=== PATIENT | female | born 1975 | race Caucasian/White ===

== ENCOUNTER 2017-08-28 19:20 | Emergency (ER) | payer SELFPAY | END 2017-08-28 20:43 | disposition home or self-care (01) | LOC: ER 19:20 | DX: M79.602 Pain in left arm (principal); F15.10 Other stimulant abuse, uncomplicated; Z88.1 Allergy status to other antibiotic agents; Z88.0 Allergy status to penicillin; Z88.8 Allergy status to other drugs, medicaments and biological substances; Z90.49 Acquired absence of other specified parts of digestive tract | CPT/HCPCS: 73080; 73110; 99284 ==

== ENCOUNTER 2018-10-18 18:33 | Emergency (ER) | payer SELFPAY ==
[~2018-10-18] VITALS: Ht 170.2 cm; Wt 54.4 kg
[~2018-10-18 18:33] MED LIST: CYCL10TA2 PO; TRAM50TA PO
[2018-10-18] MEDS ORDERED: fentaNYL PF VIAL 100 MCG/2 ML VIAL ONE (19:12)
[2018-10-18] MEDS ORDERED: fentaNYL PF VIAL 100 MCG/2 ML VIAL IV ONE (19:15)
[2018-10-18 19:17] LABS: BASO % 1 % (0-3); EOS # 0.1 x10^3/uL (0.0-0.7); EOS % 1 % (0-3); HEMATOCRIT 40.8 % (36.0-47.0); HEMOGLOBIN 14.3 g/dL (12.0-15.5); LYMPH # 2.4 x10^3/uL (1.0-4.8); LYMPH % 28 % (24-48); MEAN CORPUSCULAR HEMOGLOBIN 31 pg (25-35); MEAN CORPUSCULAR HGB CONC 35 g/dL (31-37); MEAN CORPUSCULAR VOLUME 89 fL (79-100); MONO # 0.6 x10^3/uL (0.0-1.1); MONO % 7 % (0-9); NEUT # 5.4 x10^3uL (1.8-7.7); NEUT % 63 % (31-73); PLATELET COUNT 313 x10^3/uL (140-400); RED CELL DISTRIBUTION WIDTH 12.5 % (11.5-14.5); WHITE BLOOD COUNT 8.5 x10^3/uL (4.0-11.0)
[2018-10-18 19:27] LABS: CALCIUM 9.6 mg/dL (8.5-10.1); CREATININE 0.7 mg/dL (0.6-1.0); GFR 91.3
[2018-10-18 19:33] LABS: ALBUMIN 4.3 g/dL (3.4-5.0); ALBUMIN/GLOBULIN RATIO 1.2 (1.0-1.7); TOTAL BILIRUBIN 0.3 mg/dL (0.2-1.0); TOTAL PROTEIN 7.8 g/dL (6.4-8.2)
[2018-10-18 19:40] LABS: BILIRUBIN,URINE NEGATIVE (NEG); CLARITY,URINE CLEAR; COLOR,URINE YELLOW; NITRITE,URINE NEGATIVE (NEG); PH,URINE 7.5; PROTEIN,URINE NEGATIVE (NEG-TRACE)
[2018-10-18 19:45] LABS: AMORPHOUS SEDIMENT,UR PRESENT /HPF; BACTERIA,URINE 0 /HPF (0-FEW); SQUAMOUS EPITHELIAL CELL,UR MOD /LPF
[2018-10-18] MEDS ORDERED: KETOROLAC 15 MG/ML VIAL. IV ONE (19:45)
[2018-10-18 19:51] LABS: AMPHETAMINE/METHAMPHETAMINE POS (NEG); BARBITURATES NEG (NEG); BENZODIAZEPINES NEG (NEG); CANNABINOIDS NEG (NEG); COCAINE NEG (NEG); METHADONE NEG (NEG); OPIATES NEG (NEG); PHENCYCLIDINE NEG (NEG)
--- NOTE | 2018-10-18 20:15 | PHYS DOC ---
Past Medical History Past Medical History: Cancer, Migraines Past Surgical History: Appendectomy, Other Additional Past Surgical Histo: KNEE SURGERY, OVARIAN CYST REMOVAL Alcohol Use: Occasionally Drug Use: Methadone Adult General Chief Complaint Chief Complaint: ABDOMINAL PAIN HPI HPI Patient is a 43 year old female who presents with chief complaint of right lower abdominal pain she has been feeling for the last couple of days but got much worse about an hour ago. She is a prior history of ovarian cysts. Pain is sharp severe radiates to the back no dysuria has not tried anything for relief Review of Systems Review of Systems Constitutional: Denies fever or chills [] Eyes: Denies change in visual acuity, redness, or eye pain [] HENT: Denies nasal congestion or sore throat [] Respiratory: Denies cough or shortness of breath [] All other systems were reviewed and found to be within normal limits, except as documented in this note. Current Medications Current Medications Current Medications Medications (Trade) Dose Ordered Sig/Nj Start Time Stop Time Status Last Admin Dose Admin Fentanyl Citrate (Fentanyl 2ml Vial) 100 mcg STK-MED ONCE 10/18/18 19:12 10/18/18 19:13 DC Ketorolac Tromethamine (Toradol 15mg Vial) 15 mg 1X ONCE 10/18/18 19:45 10/18/18 19:46 DC 10/18/18 19:51 15 MG Allergies Allergies Allergies Coded Allergies Type Severity Reaction Last Updated Verified Penicillins Allergy Unknown 08/28/17 Yes amoxicillin Allergy Unknown 08/28/17 Yes topiramate Allergy Unknown 08/28/17 Yes Physical Exam Physical Exam Constitutional: Well developed, moderate to severe distress HENT: Normocephalic, atraumatic, bilateral external ears normal, oropharynx moist, no oral exudates, nose normal. [] Eyes: PERRLA, EOMI, conjunctiva normal, no discharge. [] Neck: Normal range of motion, no tenderness, supple, no stridor. [] Pulmonary: Normal respiratory effort no increased work of breathing no obvious chest wall trauma Abdomen: Bowel sounds normal, soft, right lower quadrant tenderness, no masses, no pulsatile masses. [] Skin: Warm, dry, no erythema, no rash. [] Back: No tenderness, no CVA tenderness. [] Extremities: No tenderness, no cyanosis, no clubbing, ROM intact, no edema. [] Neurologic: Alert and oriented X 3, normal motor function, normal sensory fu nction, no focal deficits noted. [] Psychologic: Affect normal, judgement normal, mood normal. [] Current Patient Data Vital Signs Vital Signs Date Time Temp Pulse Resp B/P (MAP) Pulse Ox O2 Delivery O2 Flow Rate FiO2 10/18/18 18:41 97.8 76 22 125/61 (82) 96 Room Air 97.8 Lab Values Laboratory Tests Test 10/18/18 19:06 10/18/18 19:20 10/18/18 19:30 10/18/18 19:36 White Blood Count 8.5 x10^3/uL (4.0-11.0) Red Blood Count 4.60 x10^6/uL (3.50-5.40) Hemoglobin 14.3 g/dL (12.0-15.5) Hematocrit 40.8 % (36.0-47.0) Mean Corpuscular Volume 89 fL (79-100) Mean Corpuscular Hemoglobin 31 pg (25-35) Mean Corpuscular Hemoglobin Concent 35 g/dL (31-37) Red Cell Distribution Width 12.5 % (11.5-14.5) Platelet Count 313 x10^3/uL (140-400) Neutrophils (%) (Auto) 63 % (31-73) Lymphocytes (%) (Auto) 28 % (24-48) Monocytes (%) (Auto) 7 % (0-9) Eosinophils (%) (Auto) 1 % (0-3) Basophils (%) (Auto) 1 % (0-3) Neutrophils # (Auto) 5.4 x10^3uL (1.8-7.7) Lymphocytes # (Auto) 2.4 x10^3/uL (1.0-4.8) Monocytes # (Auto) 0.6 x10^3/uL (0.0-1.1) Eosinophils # (Auto) 0.1 x10^3/uL (0.0-0.7) Basophils # (Auto) 0.0 x10^3/uL (0.0-0.2) Sodium Level 140 mmol/L (136-145) Potassium Level 4.0 mmol/L (3.5-5.1) Chloride Level 103 mmol/L (98-107) Carbon Dioxide Level 26 mmol/L (21-32) Anion Gap 11 (6-14) Blood Urea Nitrogen 16 mg/dL (7-20) Creatinine 0.7 mg/dL (0.6-1.0) Estimated GFR (Cockcroft-Gault) 91.3 BUN/Creatinine Ratio 23 (6-20) H Glucose Level 98 mg/dL (70-99) Calcium Level 9.6 mg/dL (8.5-10.1) Total Bilirubin 0.3 mg/dL (0.2-1.0) Aspartate Amino Transferase (AST) 12 U/L (15-37) L Alanine Aminotransferase (ALT) 21 U/L (14-59) Alkaline Phosphatase 69 U/L (46-116) Total Protein 7.8 g/dL (6.4-8.2) Albumin 4.3 g/dL (3.4-5.0) Albumin/Globulin Ratio 1.2 (1.0-1.7) Urine Collection Type U cath Urine Color Yellow Urine Clarity Clear Urine pH 7.5 Urine Specific [place] 1.020 Urine Protein Negative mg/dL (NEG-TRACE) Urine Glucose (UA) Negative mg/dL (NEG) Urine Ketones (Stick) Negative mg/dL (NEG) Urine Blood Negative (NEG) Urine Nitrite Negative (NEG) Urine Bilirubin Negative (NEG) Urine Urobilinogen Dipstick 1.0 mg/dL (0.2 mg/dL) Urine Leukocyte Esterase Small (NEG) Urine RBC 1-2 /HPF (0-2) Urine WBC 1-4 /HPF (0-4) Urine Squamous Epithelial Cells Mod /LPF Urine Amorphous Sediment Present /HPF Urine Bacteria 0 /HPF (0-FEW) Urine Mucus Slight /LPF Urine Opiates Screen Neg (NEG) Urine Methadone Screen Neg (NEG) Urine Barbiturates Neg (NEG) Urine Phencyclidine Screen Neg (NEG) Urine Amphetamine/Methamphetamine Pos (NEG) Urine Benzodiazepines Screen Neg (NEG) Urine Cocaine Screen Neg (NEG) Urine Cannabinoids Screen Neg (NEG) Urine Ethyl Alcohol Neg (NEG) POC Urine HCG, Qualitative Hcg negative (Negative) Laboratory Tests 10/18/18 19:06 Laboratory Tests 10/18/18 19:06 EKG EKG [] Radiology/Procedures Radiology/Procedures [] Impressions: Findings: The uterus is anteverted and measures 8.7 x 4.9 x 4.4 cm. The endometrial stripe measures 9.4 mm. There is a solid 1.8 x 1.4 x 1.0 cm lesion in the cervix probably a cervical fibroid The right ovary measures 2.6 x 1.8 x 1.8 cm. There is a probable hemorrhagic cyst measuring 0.9 x 0.7 x 0.4 cm. The left ovary measures 4.6 x 3.7 x 2.9 cm. There is a large septated cyst measuring 2.9 x 3.5 x 2.0 cm in the left ovary. Symmetric vascularity seen in both ovaries. Impression: Probable cervical fibroid. Septated 2.9 x 3.5 x 2.0 cm cyst in the left ovary physiological. Short-term interval follow-up is 6 weeks may be obtained to ensure stability. Electronically signed by: Tamar Otto MD (10/18/2018 8:57 PM) [facility] DICTATED and SIGNED BY: TAMAR OTTO MD DATE: 10/18/182056 Course & Med Decision Making Course & Med Decision Making Pertinent Labs and Imaging studies reviewed. (See chart for details) []I saw the patient 25 minutes into the ER course. Ultrasound showed good bilateral blood flow patient's pain was controlled in the emergency room with the above medication. She is status post appendectomy. I recommended follow-up ultrasound in 6 weeks as per radiologist's recommendation. Dragon Disclaimer Dragon Disclaimer This electronic medical record was generated, in whole or in part, using a voice recognition dictation system. Departure Departure Impression: Primary Impression: Ovarian cyst Disposition: HOME, SELF-CARE Condition: STABLE Referrals: NO PCP (PCP) Scripts Oxycodone/Apap 5-325 (PERCOCET 5-325 MG TABLET ) 1 Each Tablet 1-2 EACH PO PRN TID PRN for PAIN, #15 TAB pain Prov: JEREMY FISHER MD 10/18/18 JEREMY FISHER MD Oct 18, 2018 20:15
--- NOTE | 2018-10-18 21:00 | RAD ---
Exam performed: Transvaginal Pelvic Ultrasound. Indication: Severe right lower quadrant pain, evaluation of torsion Date of Service: 10/18/2018. No previous exams available for comparison Technique: Transvaginal Findings: The uterus is anteverted and measures 8.7 x 4.9 x 4.4 cm. The endometrial stripe measures 9.4 mm. There is a solid 1.8 x 1.4 x 1.0 cm lesion in the cervix probably a cervical fibroid The right ovary measures 2.6 x 1.8 x 1.8 cm. There is a probable hemorrhagic cyst measuring 0.9 x 0.7 x 0.4 cm. The left ovary measures 4.6 x 3.7 x 2.9 cm. There is a large septated cyst measuring 2.9 x 3.5 x 2.0 cm in the left ovary. Symmetric vascularity seen in both ovaries. Impression: Probable cervical fibroid. Septated 2.9 x 3.5 x 2.0 cm cyst in the left ovary physiological. Short-term interval follow-up is 6 weeks may be obtained to ensure stability. Electronically signed by: Tamar Otto MD (10/18/2018 8:57 PM) [facility]
[2018-10-18] MEDS ORDERED: OXYC1TAB15 PO (21:11)
[2018-10-18 21:21] VITALS: BP 112/68
== END 2018-10-18 21:22 | disposition home or self-care (01) ==
LOC: ER 18:33
DX: N83.202 Unspecified ovarian cyst, left side (principal); G43.909 Migraine, unspecified, not intractable, without status migrainosus; Z90.89 Acquired absence of other organs; Z88.0 Allergy status to penicillin; Z88.1 Allergy status to other antibiotic agents; Z88.8 Allergy status to other drugs, medicaments and biological substances
CPT/HCPCS: 36415; 76830; 76856; 80053; 80307; 81001; 81025; 85025; 87086; 96374; 96375; 99285; J1885; J3010

== ENCOUNTER 2019-10-25 08:58 | Emergency (ER) | payer SELFPAY ==
[~2019-10-25] VITALS: Ht 170.2 cm; Wt 63.6 kg
[~2019-10-25 08:58] MED LIST changes: +OXYC1TAB15 PO
[2019-10-25 09:51] LABS: CALCIUM 8.6 mg/dL (8.5-10.1); CREATININE 0.7 mg/dL (0.6-1.0); GFR 90.9; POTASSIUM 3.5 mmol/L (3.5-5.1)
[2019-10-25 10:15] LABS: BILIRUBIN,URINE NEGATIVE (NEG); CLARITY,URINE CLEAR; COLOR,URINE YELLOW; NITRITE,URINE POSITIVE (NEG); PH,URINE 8.5 (<5.0-8.0); PROTEIN,URINE NEGATIVE (NEG-TRACE)
[2019-10-25 10:17] LABS: BASO % 1 % (0-3); EOS % 1 % (0-3); HEMATOCRIT 38.4 % (36.0-47.0); HEMOGLOBIN 13.3 g/dL (12.0-15.5); LYMPH # 0.8 x10^3/uL (1.0-4.8); LYMPH % 39 % (24-48); MEAN CORPUSCULAR HEMOGLOBIN 32 pg (25-35); MEAN CORPUSCULAR HGB CONC 35 g/dL (31-37); MEAN CORPUSCULAR VOLUME 91 fL (79-100); MONO % 0 % (0-9); NEUT # 1.3 x10^3/uL (1.8-7.7); NEUT % 59 % (31-73); PLATELET COUNT 293 x10^3/uL (140-400); RED CELL DISTRIBUTION WIDTH 12.5 % (11.5-14.5); WHITE BLOOD COUNT 2.1 x10^3/uL (4.0-11.0)
[2019-10-25 10:23] LABS: WBC,URINE 20-40 /HPF (0-4)
[2019-10-25 10:24] LABS: BACTERIA,URINE MANY /HPF (0-FEW); RBC,URINE OCC /HPF (0-2); SQUAMOUS EPITHELIAL CELL,UR FEW /LPF
[2019-10-25 10:25] LABS: HYALINE CASTS, URINE OCCASIONAL /HPF
[2019-10-25] MEDS ORDERED: CONTRAST GIVEN. MC PRN (10:30)
[2019-10-25] MEDS ORDERED: IOHEXOL 240 MG/ML 50ML VIAL. PO ONE (10:30)
[2019-10-25] MEDS ORDERED: ONDANSETRON PF 4 MG/2 ML VIAL. IVP ONE (11:45)
--- NOTE | 2019-10-25 13:16 | RAD ---
Exam: CT abdomen/pelvis without intravenous contrast Indication: Abdominal pain on left with radiation into pelvis Comparison: None Technique: Helical CT imaging performed of the abdomen and pelvis after without intravenous contrast. Sagittal and coronal reformats were obtained. One or more of the following individualized dose reduction techniques were utilized for this examination: 1. Automated exposure control 2. Adjustment of the mA and/or kV according to patient size 3. Use of iterative reconstruction technique. Findings: Lower chest: Normal. Liver: Normal. Gallbladder/Biliary Tree: Normal. Pancreas: Normal. Spleen: Normal. Adrenal Glands: Normal. Kidneys/Ureters/Bladder: Kidneys are normal in size. No hydronephrosis or nephrolithiasis. Ureters are normal. No definite urolithiasis. A 4 mm calcification in the pelvis near the right UVJ is likely a phlebolith rather than in the ureter. The bladder is normal. Reproductive Organs: Normal. Stomach, small bowel, and colon: Normal. Vasculature: Abdominal aorta is normal in caliber. Lymph Nodes: No lymphadenopathy Peritoneum and retroperitoneum: No free fluid or free air. Bones: No acute osseous abnormality. IMPRESSION: Normal noncontrast CT of the abdomen and pelvis. No hydronephrosis or urolithiasis. Electronically signed by: Mayra Trujillo MD (10/25/2019 1:13 PM) [id number]
[2019-10-25 14:20] VITALS: BP 108/65
[2019-10-25] MEDS ORDERED: CEPH-264 PO (14:20)
[2019-10-25] MEDS ORDERED: METR500T PO (14:20)
--- NOTE | 2019-10-25 14:30 | PHYS DOC ---
Past Medical History Past Medical History: Cancer, Migraines Past Surgical History: Appendectomy, Other Additional Past Surgical Histo: KNEE SURGERY, OVARIAN CYST REMOVAL Smoking Status: Current Every Day Smoker Alcohol Use: Occasionally Drug Use: Methadone General Adult EDM: Chief Complaint: BACK PAIN - NO INJURY HPI: HPI: Patient is a 44 year old female who presents with left-sided flank pain. Patient initially stated that she had left flank pain that radiated into her pelvis. She then stated she had right flank pain but then switch back to left flank pain. She states that she has had some nausea denies vomiting. She states the pain got significantly worse today but has been ongoing for several months. She is also been having vaginal discharge for several months. She denies any chance of being . She denies any fevers. Review of Systems: Review of Systems: General: Denies fever, chills, sweats, fatigue Eyes: Denies drainage, blurred vision HENT: Denies rhinorrhea, sore throat Respiratory: Denies cough, shortness of breath, wheezing Cardiac: Denies edema, palpitations, chest pain GI: Reports abdominal pain, N/V, vaginal discharge MSK: Denies back pain, neck pain Skin: Denies rash, jaundice Neuro: Denies headache, dizziness Psychiatric: Denies SI/HI Heart Score: Risk Factors: Risk Factors: DM, Current or recent (<one month) smoker, HTN, HLP, family history of CAD, obesity. Risk Scores: Score 0 - 3: 2.5% MACE over next 6 weeks - Discharge Home Score 4 - 6: 20.3% MACE over next 6 weeks - Admit for Clinical Observation Score 7 - 10: 72.7% MACE over next 6 weeks - Early Invasive Strategies Current Medications: Current Medications Medications (Trade) Dose Ordered Sig/Nj Start Time Stop Time Status Last Admin Dose Admin Info (CONTRAST GIVEN -- Rx MONITORING) 1 each PRN DAILY PRN 10/25/19 10:30 10/27/19 10:29 Iohexol (Omnipaque 240 Mg/ml) 30 ml 1X ONCE 10/25/19 10:30 10/25/19 10:31 DC Ondansetron HCl (Zofran) 4 mg 1X ONCE 10/25/19 11:45 10/25/19 11:46 DC 10/25/19 11:45 4 MG Allergies: Allergies: Allergies Coded Allergies Type Severity Reaction Last Updated Verified Penicillins Allergy Unknown 08/28/17 Yes amoxicillin Allergy Unknown 08/28/17 Yes topiramate Allergy Unknown 08/28/17 Yes Physical Exam: PE: Constitutional: Well developed, well nourished, Cooperative, NAD, non-toxic appearing HEENT: Normocephalic, atraumatic, oropharynx moist, EOMI, PERRL, no drainage from eyes, normal conjunctiva Neck: Supple, normal range of motion, no stridor Cardiovascular: RRR, 2+ radial pulses bilaterally, no edema Respiratory: CTA bilaterally, no respiratory distress, no wheezing/crackles Abdomen: Soft, nontender, nondistended, no masses Skin: Warm, dry, intact Extremities: No obvious deformities Neurologic: Alert and Oriented x3, motor and sensory function grossly normal, no focal deficits Psychologic: Normal affect, normal judgment, normal mood. No SI/HI Current Patient Data: Labs: Laboratory Tests Test 10/25/19 09:18 10/25/19 09:30 10/25/19 09:35 Urine Collection Type Unknown Urine Color Yellow Urine Clarity Clear Urine pH 8.5 (<5.0-8.0) Urine Specific [place] 1.020 (1.000-1.030) Urine Protein Negative mg/dL (NEG-TRACE) Urine Glucose (UA) Negative mg/dL (NEG) Urine Ketones (Stick) Negative mg/dL (NEG) Urine Blood Negative (NEG) Urine Nitrite Positive (NEG) Urine Bilirubin Negative (NEG) Urine Urobilinogen Dipstick 1.0 mg/dL (0.2 mg/dL) Urine Leukocyte Esterase Small (NEG) Urine RBC Occ /HPF (0-2) Urine WBC 20-40 /HPF (0-4) Urine Squamous Epithelial Cells Few /LPF Urine Bacteria Many /HPF (0-FEW) Urine Hyaline Casts Occasional /HPF White Blood Count 2.1 x10^3/uL (4.0-11.0) L Red Blood Count 4.20 x10^6/uL (3.50-5.40) Hemoglobin 13.3 g/dL (12.0-15.5) Hematocrit 38.4 % (36.0-47.0) Mean Corpuscular Volume 91 fL (79-100) Mean Corpuscular Hemoglobin 32 pg (25-35) Mean Corpuscular Hemoglobin Concent 35 g/dL (31-37) Red Cell Distribution Width 12.5 % (11.5-14.5) Platelet Count 293 x10^3/uL (140-400) Neutrophils (%) (Auto) 59 % (31-73) Lymphocytes (%) (Auto) 39 % (24-48) Monocytes (%) (Auto) 0 % (0-9) Eosinophils (%) (Auto) 1 % (0-3) Basophils (%) (Auto) 1 % (0-3) Neutrophils # (Auto) 1.3 x10^3/uL (1.8-7.7) L Lymphocytes # (Auto) 0.8 x10^3/uL (1.0-4.8) L Monocytes # (Auto) 0.0 x10^3/uL (0.0-1.1) Eosinophils # (Auto) 0.0 x10^3/uL (0.0-0.7) Basophils # (Auto) 0.0 x10^3/uL (0.0-0.2) Sodium Level 142 mmol/L (136-145) Potassium Level 3.5 mmol/L (3.5-5.1) Chloride Level 105 mmol/L (98-107) Carbon Dioxide Level 22 mmol/L (21-32) Anion Gap 15 (6-14) H Blood Urea Nitrogen 14 mg/dL (7-20) Creatinine 0.7 mg/dL (0.6-1.0) Estimated GFR (Cockcroft-Gault) 90.9 Glucose Level 89 mg/dL (70-99) Calcium Level 8.6 mg/dL (8.5-10.1) POC Urine HCG, Qualitative Hcg negative (Negative) Laboratory Tests 10/25/19 09:30 Laboratory Tests 10/25/19 09:30 Microbiology 10/25/19 Wet Prep - Final, Complete Vital Signs: Vital Signs Date Time Temp Pulse Resp B/P (MAP) Pulse Ox O2 Delivery O2 Flow Rate FiO2 10/25/19 11:00 100 23 117/56 (76) 99 Room Air 10/25/19 09:00 97.7 97.7 EKG: EKG: [] Radiology/Procedures: Radiology/Procedures: [] Course & Med Decision Making: Course & Med Decision Making Pertinent Labs and Imaging studies reviewed. (See chart for details) Patient is a 44-year-old female who presents to the emergency room complaining of flank pain, dysuria, vaginal discharge. Wet mount, GC chlamydia swabs were obtained. Wet mount shows likely bacterial vaginosis. Patient was given fentanyl by EMS and is very sleepy upon my evaluation. She does not appear to b e in any acute distress. UA is suggestive of UTI. Flank pain is likely due to pyelonephritis. CT was done to rule out aortic aneurysm, kidney stone, infection. CT is negative. She will be discharged with Flagyl and Keflex. Patient's test results and vitals while in the ED were fully reviewed and discussed with the patient. Patient is stable and at this time does not need admission to the hospital. We have discussed strict return precautions and the importance of following up with their Primary Care Physician. Patient stated understanding and was given an opportunity to ask any questions. Dragon Disclaimer: Dragon Disclaimer: This electronic medical record was generated, in whole or in part, using a voice recognition dictation system. Departure Departure Impression: Primary Impression: Bacterial vaginosis Additional Impression: Pyelonephritis Disposition: 01 HOME, SELF-CARE Condition: GOOD Patient Instructions: Bacterial Vaginosis, [id number], Pyelonephritis, Adult, [id number] Scripts Metronidazole (FLAGYL) 500 Mg Tablet 1 TAB PO BID, #14 TAB Prov: KATELIN PALMER MD 10/25/19 Cephalexin (KEFLEX) 500 Mg Capsule 1 CAP PO Q12HR, #40 CAP Prov: KATELIN PALMER MD 10/25/19 Justicifation of Admission Dx: Justifications for Admission: Justification of Admission Dx: No KATELIN PALMER MD Oct 25, 2019 14:30
[2019-10-26 18:09] LABS: GC PROBE Negative (Negative)
== END 2019-10-25 14:25 | disposition home or self-care (01) ==
LOC: ER 08:58
DX: N76.0 Acute vaginitis (principal); N12 Tubulo-interstitial nephritis, not specified as acute or chronic; G43.909 Migraine, unspecified, not intractable, without status migrainosus; F17.200 Nicotine dependence, unspecified, uncomplicated; F19.10 Other psychoactive substance abuse, uncomplicated; Z85.9 Personal history of malignant neoplasm, unspecified; Z98.890 Other specified postprocedural states; Z88.0 Allergy status to penicillin; Z88.1 Allergy status to other antibiotic agents; Z88.8 Allergy status to other drugs, medicaments and biological substances
CPT/HCPCS: 36415; 74176; 80048; 81001; 81025; 85025; 87491; 87591; 96374; 99285; J2405; Q0111